=== PATIENT | male | born 1980 | race Two or more races ===

== ENCOUNTER 2018-02-03 07:11 | Day surgery (SDC) | payer OTHER ==
[2018-02-03] MEDS ORDERED: BENZOIN TINCTURE SWABSTICK TP ONE (07:24)
[2018-02-03] MEDS ORDERED: LIDOCAINE HCL 1%, 10 MG/ML (20ML VIAL) ONE (07:24)
[2018-02-03] MEDS ORDERED: BUPIVACAINE HCL/PF 0.5% (5MG/ML) 10 ML VIAL ONE (07:24)
[2018-02-03 07:42] VITALS: BMI 25.7
[2018-02-03] MEDS ORDERED: MIDAZOLAM HCL 2 MG/2 ML SINGLE DOSE VIAL ONE ×2 (08:19)
[2018-02-03] MEDS ORDERED: PROPOFOL 20 ML ONE (08:24)
[2018-02-03] MEDS ORDERED: ROCURONIUM BROMIDE 50 MG/5 ML VIAL ONE (08:24)
[2018-02-03] MEDS ORDERED: ceFAZolin SODIUM 1 GM VIAL IVPB ONE (08:27)
--- NOTE | 2018-02-03 08:30 | HP ---
History & Physical Update - History History: No Change - Physical Physical: No Change - Assessment Assessment: No Change - Plan Plan: No Change (no change since visit with Dr Boyd on 01/08/18)
[2018-02-03] MEDS ORDERED: LIDOCAINE HCL 1%, 10 MG/ML (50 mL VIAL) IJ ONE ×2 (08:40)
[2018-02-03] MEDS ORDERED: BUPIVACAINE HCL/PF (5 MG/ML) 30 ML VIAL IJ ONE ×2 (08:40)
[2018-02-03] MEDS ORDERED: LIDOCAINE HCL/PF 2% SDV 5ML VIAL ONE (10:05)
[2018-02-03] MEDS ORDERED: ceFAZolin SODIUM 1 GM VIAL ONE (10:05)
[2018-02-03] MEDS ORDERED: DEXAMETHASONE SOD PHOSPHATE 4 MG/1 ML VIAL ONE (10:05)
[2018-02-03] MEDS ORDERED: KETOROLAC TROMETHAMINE 30 MG/1 ML VIAL ONE (10:05)
[2018-02-03] MEDS ORDERED: oxyCODONE HCL 5 MG TABLET PO PRN (10:29)
[2018-02-03] MEDS ORDERED: PROMETHAZINE HCL 25 MG/1 ML VIAL IVPUSH PRN (10:29)
[2018-02-03] MEDS ORDERED: ONDANSETRON 4 MG/2 ML VIAL IVPUSH PRN (10:29)
[2018-02-03] MEDS ORDERED: ACETAMINOPHEN 1000 MG/100 ML VIAL (NON FORMULARY) IVPB ONE (10:30)
[2018-02-03] MEDS ORDERED: LACTATED RINGERS SOLUTION 1,000 ML IV SCH (10:30)
--- NOTE | 2018-02-03 10:32 | OP ---
Operative Note - Note: Operative Date: 02/03/18 Pre-Operative Diagnosis: bilateral inguinal hernias Operation: open repair of bilateral inguinal hernias w/mesh Findings: b/l direct inguinal hernias and cord lipomas Post-Operative Diagnosis: Same as Pre-op Surgeon: Jose Guadalupe Boyd Game Manager: Josefa Bales Anesthesia: General Specimens Removed: b/l cord lipomas Estimated Blood Loss (mls): 10
[2018-02-03] MEDS ORDERED: ACETAMINOPHEN INJECTION 100 ML IVPB ONE (10:33)
--- NOTE | 2018-02-03 10:37 | SURG ---
Surgery Assembly Associate Note Assembly Associate: Josefa Bales PA-C Date of Service: 02/03/18 Diagnosis: bilateral inguinal hernias Procedure: open repair of bilateral inguinal hernias w/mesh I was present for the entirety of the operative procedure. For further detail, please refer to operative report. Visit type - Case Type Case Type: Scheduled - Emergency Emergency Visit: No - New patient This patient is new to me today: Yes Date on this admission: 02/03/18
[2018-02-03] MEDS ORDERED: oxyCODONE HCL 5 MG TABLET ONE (14:51)
[2018-02-03] MEDS ORDERED: oxyCODONE HCL 5 MG TABLET PO ONE (14:55)
[2018-02-03 16:18] VITALS: BP 119/78; PULSE 88; TEMP 97.4
--- NOTE | 2018-02-06 18:28 | PATH ---
Surgical Pathology Report Patient Name: TASNEEM MCLEAN [facility]. Rec. #: [id number] /Age/Gender: 1980 (Age: 37) / M Account: [id number] Location: [facility] SURGICAL Taken: 02/03/2018 Received: 02/03/2018 Reported: 02/06/2018 Physicians: Jose Guadalupe Boyd MD Specimen(s) Received A: LEFT INGUINAL LIPOMA B: RIGHT INGUINAL FAT AND SAC Clinical History Bilateral inguinal hernia Final Diagnosis A. INGUINAL LIPOMA, LEFT, HERNIA REPAIR: FIBROADIPOSE TISSUE CONSISTENT WITH LIPOMA. B. INGUINAL FAT AND SAC, RIGHT, HERNIA REPAIR: MESOTHELIAL LINED FIBROMEMBRANOUS TISSUE AND MATURE ADIPOSE TISSUE CONSISTENT WITH HERNIA SAC AND CONTENTS. Electronically Signed Maricel Duncan M.D. Gross Description A. Received in formalin labeled as "left inguinal lipoma" is an irregular yellow soft tissue mass measuring 6 x 3 x 2 cm. Cut section is yellow, homogenous, with focal areas of hemorrhage. No necrosis are identified. Second Floor Operator sections are submitted in one cassette. B. Received in formalin labeled past "right inguinal fat and sac" is a fibromembranous and fibroadipose soft tissue consistent with hernia sac measuring 4.5 x 3.5 x 1.7 cm. Second Floor Operator sections are submitted in one cassette. MLSHANNAN/02/03/2018 cornelius/02/03/2018
--- NOTE | 2018-02-13 09:29 | OP ---
DATE OF OPERATION: 02/03/2018 PREOPERATIVE DIAGNOSIS: Bilateral inguinal hernias, right greater than left. POSTOPERATIVE DIAGNOSIS: Bilateral inguinal hernias, right greater than left. PROCEDURE PERFORMED: Repair of bilateral inguinal hernias with mesh. SURGEON: Jose Guadalupe Boyd MD BAGGAGE INSPECTOR: DARCY Joshi ANESTHESIA: General. OPERATIVE FINDINGS: There were bilateral lipomas of the cord and a small indirect sac on the right. The floor of the inguinal canal was weak and attenuated on both sides, and the rest of the findings were unremarkable. DESCRIPTION OF PROCEDURE: The patient was placed on the operating table in the supine position. After the induction of general anesthesia, the patient's right and left groins were prepped with ChloraPrep and draped in sterile fashion. A time-out was taken. A right inguinal hernia transverse groin crease incision was mapped out and the bhavana infiltrated with 1% Xylocaine and 0.5% Marcaine in equal concentration. Incision was made with a scalpel and taken down through skin, subcutaneous tissue and Mario Alberto fascia to the external oblique fascia, which was divided proximally in the direction of its fibers and distally as well through the external ring. The cord structures and nerve were elevated at the level of the pubic tubercle, and a Olga drain placed around them for traction and identification purposes. Dissection of the cord revealed the previously noted findings on the right with a lipoma, which was separable from and indirect sac. The lipoma was excised after its pedicle was clamped, and the pedicle ligated with 2-0 Vicryl suture. The indirect sac was reduced into the peritoneal cavity. The floor of the inguinal canal was then repaired by fashioning a piece of Parietex ProGrip Mesh into the inguinal canal and anchoring it at the pubic tubercle, shelving edge and conjoint tendon, respectively, with interrupted 2-0 Prolene. A keyhole was created for the cord structures and the tails of the mesh brought above the level of the internal ring, where they were crossed and anchored with interrupted 2-0 Prolene. Hemostasis was checked for and noted to be good. Then the wound was copiously irrigated with sterile saline. The cord structures and nerve were returned to their normal anatomic position, and the external oblique fascia closed using continuous 2-0 Vicryl, recreating the external ring. Mario Alberto fascia was reapproximated with interrupted 2-0 Vicryl, the deep dermis with interrupted 3-0 Vicryl and the skin edges with 4-0 Vicryl in a subcuticular continuous fashion. Steri-Strips and Dermabond were placed, and then the exact same procedure was repeated the left side, where there was only a lipoma of the cord, sent to Pathology, and there was no evidence of an indirect sac. Once the 2nd side was completed, dry dressings were placed on both incisions, followed by Tegaderm dressing. The patient was aroused from general anesthesia and transferred to the postanesthesia care unit in stable condition, awake and alert. ESTIMATED BLOOD LOSS: 10 mL. REPLACEMENT: Crystalloid. DRAINS: None. SPECIMEN: Bilateral cord lipomas and indirect right inguinal hernia sac to Pathology. I, Jose Guadalupe Boyd, was physically present in the operating room from the time the patient was placed on the operating room table until he was transferred to the postanesthesia care unit in my accompaniment. MD KAT Casanova/[id number]
== END 2018-02-03 15:35 | disposition home or self-care (01) ==
LOC: JASU-SURG 07:11
PROVIDERS: ATTEND Surgery
PROC: 0YUA0JZ Supplement Bilateral Inguinal Region with Synthetic Substitute, Open Approach (ICD-10-PCS; principal; 2018-02-03 08:00)
DX: K40.20 Bilateral inguinal hernia, without obstruction or gangrene, not specified as recurrent (principal)
CPT/HCPCS: 82962; 88304-TC; J0131

== ENCOUNTER 2019-11-21 14:59 | Emergency (ER) | payer OTHER ==
[2019-11-21 15:07] VITALS: BP 122/84; PULSE 76; TEMP 98.6; BMI 26.4
--- OUTSIDE RECORDS SUMMARY | 2019-11-21 15:09 | XMS ---
:1980 Author Organization [facility] Support Name Relationship Address Phone UNK Unavailable Unavailable Unavailable AMBROSIO ROSA FRIEND [address] [place] [address] [place] [address] Re-disclosure Warning The records that you are about to access may contain information from federally- assisted alcohol or drug abuse programs. If such information is present, then the following federally mandated warning applies: This information has been disclosed to you from records protected by federal confidentiality rules (42 CFR part 2). The federal rules prohibit you from making any further disclosure of this information unless further disclosure is expressly permitted by the written consent of the person to whom it pertains or as otherwise permitted by 42 CFR part 2. A general authorization for the release of medical or other information is NOT sufficient for this purpose. The Federal rules restrict any use of the information to criminally investigate or prosecute any alcohol or drug abuse patient.The records that you are about to access may contain highly sensitive health information, the redisclosure of which is protected by Article 27-F of the [facility] Public Health law. If you continue you may haveaccess to information: Regarding HIV / AIDS; Provided by facilities licensed or operated by the [facility] Office of Mental Health; or Provided by the [facility] Office for People With Developmental Disabilities. If such information is present, then the following [facility] mandated warning applies: This information has been disclosed to you from confidential records which are protected by state law. State law prohibits you from making any further disclosure of this information without the specific written consent of the person to whom it pertains, or as otherwise permitted by law. Any unauthorized further disclosure in violation of state law may result in a fine or senior living sentence or both. A general authorization for the release of medical or other information is NOT sufficient authorization for further disclosure. Insurance Providers Payer name Policy type Policy ID Covered Covered alliance party's Policy P natali / Coverage alliance party ID relationship to [employer] Inf ormation type [employer] [place] [id number] CARE Results ID Date Data Source [id number] 06/01/2019 12:00:00 AM EDT [facility] Name Value Range Interpretation Code Description Data Corrie rce(s) Supporting Document(s ) 2019-nCoV [facility] RNA XXX ERIC+probe- Imp This lab was ordered by [facility] and reported by [employer] Procedure
--- NOTE | 2019-11-21 15:31 | PDOC ---
History of Present Illness - General Chief Complaint: Pain, Acute Stated Complaint: back and left forearm pain Time Seen by Provider: 11/21/19 15:02 - History of Present Illness Initial Comments: 11/21/19 15:11 39 M with h/o DM presents to ED with L forearm and L lower back pain. Pt states that about 2 days ago he was lifting both of his children up in the air. That evening he felt pain in his L forearm. Pt denies any falls or other injuries. States that the pain is most noticeable at night when he sleeps. Denies numbness/weakness in that arm or hand. Pt also reports L lower back pain that started at the same time. Denies weakness/numbness in any leg. Denies saddle anesthesia or incontinence. Past History - Medical History Allergies/Adverse Reactions: Allergies Allergy/AdvReac Type Severity Reaction Status Date / Time No Known Allergies Allergy Verified 11/21/19 15:24 Home Medications: Ambulatory Orders Sitagliptin Phos/Metformin HCl [Janumet 50-500 mg Tablet] 1 each PO BID 02/03/18 Glimepiride 2 mg PO BID 11/21/19 COPD: No Diabetes: Yes - Immunization History Immunization Up to Date: Yes - Psycho-Social/Smoking History Smoking History: Never smoked Have you smoked in the past 12 months: No Information on smoking cessation initiated: No - Substance Abuse Hx (Audit-C & DAST Scrn) How often the patient has a drink containing alcohol: Never Score: In Men: 4 or > Positive; In Women: 3 or > Positive: 0 Screen Result (Pos requires Nsg. Audit-10AR): Negative In the last yr the pt used illegal drug/Rx for NonMed reason: No Score: Yes response is considered Positive: 0 Screen Result (Positive result requires Nsg. DAST-10): Negative Review of Systems - Review of Systems Comments:: 11/21/19 15:31 "GENERAL/CONSTITUTIONAL: No fever or chills. No weakness. HEAD, EYES, EARS, NOSE AND THROAT: No change in vision. No ear pain or discharge. No sore throat. CARDIOVASCULAR: No chest pain, no shortness of breath, no loss of consciousness RESPIRATORY: No cough, wheezing, or hemoptysis. GASTROINTESTINAL: No nausea, vomiting, diarrhea or constipation. GENITOURINARY: No dysuria, frequency, or change in urination. MUSCULOSKELETAL: + L forearm pain, +L lower back pain SKIN: No rash NEUROLOGIC: No vertigo, no change in strength/sensation. ENDOCRINE: No increased thirst. No abnormal weight change. HEMATOLOGIC/LYMPHATIC: No anemia, easy bleeding, or history of blood clots. ALLERGIC/IMMUNOLOGIC: No hives or skin allergy. *Physical Exam - Vital Signs Last Vital Signs Temp Pulse Resp BP Pulse Ox 98.6 F 76 18 122/84 100 11/21/19 15:11/21/19 15:11/21/19 15:11/21/19 15:11/21/19 15:01 - Physical Exam 11/21/19 15:31 "GENERAL: Awake, alert, and fully oriented, in no acute distress. HEAD: No signs of trauma EYES: PERRLA, EOMI, sclera anicteric, conjunctiva clear ENT: Auricles normal inspection, hearing grossly normal, nares patent, oropharynx clear without exudates. Moist mucosa NECK: Nontender, no stepoffs, Normal ROM, supple, no lymphadenopathy, JVD, or masses LUNGS: Breath sounds equal, clear to auscultation bilaterally. No wheezes, and no crackles HEART: Regular rate and rhythm, normal S1 and S2, no murmurs, rubs or gallops ABDOMEN: Soft, nontender, normoactive bowel sounds. No guarding, no rebound. No masses EXTREMITIES: + mild TTP proximal L forearm, no deformity, Normal range of motion, no edema. No clubbing or cyanosis. No cords, erythema, or tenderness BACK: + L paraspinal lumbar TTP, no midline TTP, no stepoffs NEUROLOGICAL: Cranial nerves II through XII intact. 5/5 strength and sensation in all extremities, Normal speech, normal gait, normal cerebellar function SKIN: Warm, Dry, normal turgor, no rashes or lesions noted. ED Treatment Course - RADIOLOGY Radiology Studies Ordered: Category Date Time Status FOREARM- LEFT [RAD] Stat Radiology 11/21/19 15:10 Ordered Medical Decision Making - Medical Decision Making 11/21/19 15:32 39 M with L forearm and L lower back pain. Suspect tendinitis. Pt with mild paraspinal L lumbar TTP. Neurovascularly intact. - XR L forearm 11/21/19 15:52 XR negative on my read Pt is well appearing, with normal vitals. Clinically stable for DC at this time. I discussed the physical exam findings, ancillary test results and final diagnoses with the patient. I answered all of the patient's questions. The patient was satisfied with the care received and felt comfortable with the discharge plan and treatment plan. The patient agrees to follow up with the primary care physician within 24-72 hours. Discharge - Discharge Information Problems reviewed: Yes Clinical Impression/Diagnosis: Back pain, Forearm pain, Tendinitis Condition: Stable Disposition: HOME - Follow up/Referral Referrals: Mateus Coronel DO [Staff Physician] - - Patient Discharge Instructions Patient Printed Discharge Instructions: DI for Low Back Pain, DI for Forearm Muscle Strain Additional Instructions: Your X ray did not show any fractures or dislocations. However, you may need a MRI to rule out other soft tissue injuries. Call the number provided to make an appointment with an orthopedist. Apply ice and take ibuprofen for pain. If you experience worsening pain, weakness or numbness, or any other concerning symptoms, return to the ER immediately. - Post Discharge Activity
== END 2019-11-21 16:15 | disposition home or self-care (01) ==
LOC: FER 14:59
DX: M54.5 Low back pain (principal); M79.632 Pain in left forearm
CPT/HCPCS: 73090-TC-LT-FY; 99283-25